=== PATIENT | male | born 1930 | race Caucasian/White ===

== ENCOUNTER → 2016-04-17 | Outpatient (CLI) | payer MEDICARE, OTHER | END | disposition home or self-care (01) | LOC: GMAB 10:32 | PROVIDERS: ATTEND Family Medicine | DX: Z12.5 Encounter for screening for malignant neoplasm of prostate (principal); I10 Essential (primary) hypertension | CPT/HCPCS: 84443; G0103 ==

== ENCOUNTER → 2017-04-21 | Outpatient (CLI) | payer MEDICARE, OTHER | LOC: GMAB 10:29 | PROVIDERS: ATTEND Family Medicine | DX: Z12.5 Encounter for screening for malignant neoplasm of prostate (principal); I10 Essential (primary) hypertension | CPT/HCPCS: 84443; G0103 ==

== ENCOUNTER 2017-06-03 08:25 | Inpatient (IN) | payer MEDICARE, OTHER ==
--- NOTE | 2017-06-03 08:55 | ED.PDOC ---
History of Present Illness - General Chief Complaint: GI Problem Stated Complaint: rectal bleeding Time Seen by Provider: 06/03/17 08:49 Information Source: patient Exam Limitations: no limitations - History of Present Illness Initial Comments: Albino Dominguez 86 y/o male stated that he had bloody stool x 5 this morning with abdominal cramps no diarrhea,no hematemesis ,occasional constipation,had same symptoms 3 years ago colonoscopy done showed polyp w/c was taken out and also bleeding diverticulitis.Not taking blood thinner but presently on baby aspirin.No chronic medical problem. Abdominal Pain Onset Location: suprapubic Pain Radiation: no radiation Quality: cramping Timing/Duration: 1-3 hours Improving Factors: nothing Worsening Factors: nothing Associated Symptoms: denies symptoms Review of Systems - Review of Systems Constitutional: States: no symptoms reported EENTM: States: no symptoms reported Respiratory: States: no symptoms reported Cardiology: States: no symptoms reported Gastrointestinal/Abdominal: States: see HPI Genitourinary: States: frequency Musculoskeletal: States: back pain - chronic Skin: States: no symptoms reported Neurological: States: no symptoms reported All other Systems: Reviewed and Negative, No Change from Baseline Past Medical History (General) - Patient Medical History Hx Hypertension: Yes Hx Gastroesophageal Reflux: Yes - diverticulitis Surgical History: other - lower back - Vaccination History Hx Influenza Vaccination: Yes Hx Pneumococcal Vaccination: Yes - Social History Hx Tobacco Use: No Hx Alcohol Use: No Hx Substance Use: No Hx Substance Use Treatment: No Hx Depression: No Hx Physical Abuse: No Hx Emotional Abuse: No - Activities of Daily Living Grooming Ability: Independent Eating (Feeding) Ability: Independent Toileting Ability: Independent Family Medical History - Family History Father Living Status: Hx Family Cancer: Yes - colon Physical Exam - Physical Exam General Appearance: Alert, Comfortable, No apparent distress Eyes, Ears, Nose, Throat Exam: normal ENT inspection Neck: non-tender, full range of motion, supple Respiratory: chest non-tender, lungs clear, normal breath sounds Cardiovascular/Chest: normal peripheral pulses, regular rate, rhythm, no murmur Peripheral Pulses: No deficit Gastrointestinal/Abdominal: normal bowel sounds, non tender, soft, no organomegaly Rectal Exam: normal rectal tone, heme positive stool Back Exam: no CVA tenderness, no vertebral tenderness Extremity: non-tender, normal inspection, no pedal edema, no calf tenderness Neurologic: alert, oriented x 3 Skin Exam: normal color, warm/dry Progress - Progress Progress: 06/03/17 08:58 Vital Signs - 24 hr 06/03/17 08:35 Temperature 97.3 F L Pulse Rate [ 94 H pulse ox] Respiratory 20 Rate Blood Pressure 121/71 [Right Arm] O2 Sat by Pulse 95 Oximetry 06/03/17 10:20 D/W Dr. Romero-his low pressure boiler tender [phone] recommend hospital obs ,h/h monitoring,antibiotics and he will see patient next week advised to call 06/03/17 10:22 - Results/Orders Results/Orders: 06/03/17 08:58 URINALYSIS Stat Laboratory Results - last 24 hr 06/03/17 06/03/17 06/03/17 08:58 08:58 09:01 WBC 6.2 RBC 4.09 L Hgb 13.2 L Hct 39.0 L MCV 95.4 H MCH 32.2 H MCHC 33.8 RDW 14.2 Plt Count 191 MPV 7.5 Absolute Neuts (auto) 4.00 Absolute Lymphs (auto) 1.50 Absolute Monos (auto) 0.30 Absolute Eos (auto) 0.30 Absolute Basos (auto) 0.00 Neutrophils % 65.2 Lymphocytes % 23.8 Monocytes % 5.6 Eosinophils % 4.9 Basophils % 0.5 Sodium 138 Potassium 3.8 Chloride 105 Carbon Dioxide 23 Anion Gap 13.8 BUN 22 H Creatinine 1.41 H BUN/Creatinine Ratio 15.6 Random Glucose 152 H Serum Osmolality 282.0 Calcium 8.9 Total Bilirubin 0.6 AST 28 ALT 20 Alkaline Phosphatase 93 Serum Total Protein 6.6 Albumin 3.9 Globulin 2.7 Albumin/Globulin Ratio 1.4 Stool Occult Blood Positive - EKG/XRAY/CT XRAY: abdomen - no acute abnormalities ,mod.amt of stool Departure - Departure Clinical Impression: Rectal bleeding, Abdominal cramps Time of Disposition: 10:25 Disposition: Admit Patient Condition: Fair Departure Forms: Patient Portal Self Enrollment Referrals: Galen Burden MD [Primary Care Provider] - 1-2 Weeks Decision To Admit - Decistion To Admit Decision to Admit Reason: Admit from ER - rectal bleeding Decision to Admit Date: 06/03/17 - D/W Chong Ram-ANP/Hospitalist Decision to Admit Time: 10:23
--- NOTE | 2017-06-03 09:40 | RAD ---
EXAM DESCRIPTION: Chest,1 View CLINICAL HISTORY: pain COMPARISON: None available FINDINGS: The cardiomediastinal silhouette is unremarkable. There is no airspace consolidation or pleural effusion. The bronchovascular markings are within normal limits, and the lungs are not hyperinflated. There is no pneumothorax or acute fracture. IMPRESSION: Negative exam. Electronically signed by: Robin Burns MD 06/03/2017 9:39 AM CDT
--- NOTE | 2017-06-03 09:40 | RAD ---
EXAM DESCRIPTION: Abdomen Flat Upright CLINICAL HISTORY: 86 years Male, pain COMPARISON: None. FINDINGS: Is a moderate amount of colonic stool and gas. The bowel gas pattern is nonobstructive. No free subdiaphragmatic gas. Small colonic air-fluid levels are noted. The gallbladder surgically absent. Postoperative changes are noted in the lumbar spine. A small calcification projects over the right renal hilum. There are degenerative changes in lumbar spine multiple levels including mild dextroscoliosis. IMPRESSION: Moderate amount of colonic stool and gas, but no evidence of obstruction or pneumoperitoneum. Possible right-sided nephrolithiasis. If clinically suspicious of a right ureteral calculus, noncontrast CT is suggested. Degenerative and postoperative changes. Electronically signed by: Robin Burns MD 06/03/2017 9:38 AM CDT
--- NOTE | 2017-06-03 11:22 | HP ---
SUPERVISING PHYSICIAN: Jasiel Collins MD CHIEF COMPLAINT: Rectal bleeding. HISTORY OF PRESENT ILLNESS: Mr. Dominguez is an 86-year-old male patient who came to the Emergency Room due to bloody stools times 5 this morning with abdominal cramping. The patient does have a history of diverticulosis in the past. Apparently he had a colonoscopy around 3 years ago. At that time, he had a polypectomy as well as noted bleeding diverticula. The patient had been here at the hospital with his who is in [facility] orthopedic surgery. He was seen in the Emergency Room and noted to have a hemoglobin of 13.2. He had a mild acute kidney injury noted as well. Dr. Santana in the Emergency Room contacted the patient's sheet cutting operator, who is Dr. Romero, in [place]. He recommended the patient be admitted to the hospital under observation with serial H&Hs as well as treatment for diverticulitis with antibiotics. He stated he would see the patient next week unless there were complications prior to that. The patient is admitted under observation. At the time of examination , he is actually in his 's room at this time. He has some lower abdominal cramping and some mild tenderness to palpation. Otherwise, he is in no distress. PAST MEDICAL HISTORY: 1. Diverticulosis. 2. Osteoarthritis. 3. Glaucoma. PAST SURGICAL HISTORY: 1. Back surgery. 2. Colonoscopy. CURRENT MEDICATIONS: 1. Bentyl 10 mg 1 capsule b.i.d. p.r.n. for abdominal pain. 2. Metoprolol 25 mg extended release daily. 3. Allopurinol 300 mg p.o. daily. 4. Clonazepam 0.5 mg half tab at h.s. 5. Gabapentin 300 mg 1 tab twice daily. 6. Aspirin 81 mg p.o. daily. 7. Zantac 120 mg p.o. b.i.d. 8. Cosopt eyedrops 1 drop in the left eye b.i.d. 9. Travatan eyedrops 1 drop to each eye every morning. ALLERGIES: NO KNOWN DRUG ALLERGIES. FAMILY HISTORY: Reviewed and noncontributory. SOCIAL HISTORY: The patient is a nondrinker, nonsmoker, no illicit drugs. REVIEW OF SYSTEMS: CONSTITUTIONAL: No fever or chills. No recent weight loss or weight gain. HEENT: No headaches, vision changes, ear pain, nasal congestion or throat pain. RESPIRATORY: No cough, hemoptysis or pleuritic chest pain. CARDIOVASCULAR: No chest pain, palpitations or peripheral edema. GASTROINTESTINAL: Positive for some rectal bleeding, some lower abdominal pain , some nausea. No vomiting or constipation. GENITOURINARY: No dysuria, frequency or flank pain. HEMATOLOGIC: Positive for easy bruising, but no transfusion reactions. MUSCULOSKELETAL: No muscle cramps, joint pain or joint swelling. ENDOCRINE: No polydipsia, polyuria, polyphagia. No heat or cold intolerance. NEUROLOGIC: No syncope, paresthesias, seizures. PHYSICAL EXAMINATION: VITAL SIGNS: Blood pressure 121/80. Heart rate 88. Respiratory rate 19. Temperature 97.4. Oxygen saturation 97%. GENERAL: Mr. Dominguez is an 86-year-old male patient in no active distress currently. HEENT: Normocephalic, atraumatic. Pupils are equal and reactive. No nasal drainage. Throat with moist mucosa. NECK: Supple. Midline trachea. No jugular venous distention. CHEST: Symmetrical with equal rise and fall of the chest with inspiration and expiration. Lung sounds are clear to auscultation bilaterally. CARDIOVASCULAR: Regular rate and rhythm. Normal S1, S2. ABDOMEN: Soft. Positive bowel sounds. He does have some tenderness to palpation to bilateral lower quadrants. EXTREMITIES: Pulses 2+, cap refill less than 2 seconds. NEUROLOGICAL: Alert and oriented. LABORATORY: White blood cell count 6.2, hemoglobin 13.2, hematocrit 39.0, platelet count 191. Chemistry showed sodium 138, potassium 3.8, chloride 105, CO2 23, BUN 22, creatinine 1.41, glucose 152, calcium 8.9. Normal transaminases. Stool occult was positive. He had abdominal x-ray as well as chest x-ray. The abdominal x-ray showed a moderate amount of colonic stool and gas but no evidence of obstruction or pneumoperitoneum. Chest x-ray was negative. ASSESSMENT: 1. Abdominal pain. 2. Rectal bleeding. 3. Acute kidney injury. 4. History of diverticulitis. PLAN: At this point, with a consultation with Dr. Romero in [place], we are going to treat this like diverticulitis although his white cell count is normal. We will get serial H&Hs to ensure that he remains stable. I am going to give him some IV fluids due to the fact that he does have an acute kidney injury. Hold off on DVT prophylaxis due to acute bleeding. Also, he is ambulatory with his being next door to his room. If he remains stable overnight and his hemoglobin stays stable, we will likely release him tomorrow. He needs to followup with Dr. Romero next week. I am placing him on Flagyl p.o. as well as Cipro p.o. #[id number] #[id number] [facility]
[2017-06-03] MEDS ORDERED: SODIUM CHLORIDE 0.9% (FLUSH) 10 ML SYG IV PRN (12:48)
[2017-06-03] MEDS: metroNIDAZOLE 500 MG TAB PO SCH ×2 (13:06→20:42)
[2017-06-03] MEDS: CIPROFLOXACIN 500 MG TAB PO SCH ×2 (13:06→20:42)
[2017-06-03] MEDS: IV SET AND CAP CHANGE INJ INJ SCH (13:06)
[2017-06-03] MEDS: SODIUM CHLORIDE 0.9% 1000ML 1,000 ML IVS PRN (14:15)
[2017-06-04] MEDS: SODIUM CHLORIDE 0.9% 1000ML 1,000 ML IVS PRN ×2 (00:10→09:20)
[2017-06-04] MEDS: metroNIDAZOLE 500 MG TAB PO SCH ×3 (04:58→20:56)
[2017-06-04] MEDS: CIPROFLOXACIN 500 MG TAB PO SCH ×2 (08:29→20:56)
--- NOTE | 2017-06-04 09:58 | CT ---
EXAM DESCRIPTION: Abdoment/Pelvis w/o Contrast CLINICAL HISTORY: 86 years Male, diverticulitis COMPARISON: 28 March 2008 TECHNIQUE: Transaxial images were obtained without intravenous or oral contrast media. Sagittal and coronal reconstruction was performed.This exam was performed according to our departmental dose-optimization program, which includes automated exposure control, adjustment of the mA and/or kV according to patient size and/or use of iterative reconstruction technique. FINDINGS: The lung bases are clear. The liver and spleen are unremarkable. No biliary ductal dilatation is observed. The gallbladder is been previously removed. Surgical clips are seen in the region of gallbladder fossa. No adrenal masses are detected. The pancreas is normal in appearance. Imaging of the kidneys reveals no evidence of hydronephrosis mass or urinary tract calcification. A large peripelvic cyst is again observed on the left essentially unchanged from the prior exam. Calcific atherosclerotic changes observed in the abdominal aorta without evidence of aneurysmal dilatation. Diverticulosis of the colon is observed without evidence of diverticulitis or abscess. The appendix is identified and is normal in appearance. Pedicle screw and interbody fusion of the L3-4 level of the lumbar spine is observed. Degenerative changes are observed in the lumbar spine. IMPRESSION: 1. Cholecystectomy. 2. Uncomplicated diverticulosis of the colon. No CT evidence of diverticulitis is seen. 3. L3-4 level lumbar fusion. Electronically signed by: Yobani Wheat MD 06/04/2017 9:56 AM CDT
[2017-06-04] MEDS ORDERED: CYANOCOBALAMIN INJ 1,000 MCG/ML INJ IM ONE (18:29)
[2017-06-04] MEDS: SODIUM CHLORIDE 0.9% (FLUSH) 10 ML SYG IV SCH (20:56)
--- NOTE | 2017-06-04 23:29 | PN ---
DATE: 05/2517 SUPERVISING PHYSICIAN: Jasiel Collins M.D. SUBJECTIVE: The patient is sitting up in his 's hospital room. When he walked in the hallway today he said he was pretty weak, but he had had no bloody stools today. No complaints of chest pain or shortness of breath. OBJECTIVE: VITAL SIGNS: Temperature 98.4, pulse rate 74, blood pressure 93/58, respiratory rate 18, O2 sat 96% on room air. RESPIRATORY: Essentially clear to auscultation bilaterally. CARDIAC: Regular rate and rhythm. GASTROINTESTINAL: Abdomen is soft, nondistended, non-tender. Bowel sounds are positive. NEUROLOGIC: He is awake, alert and oriented times three. LABORATORY: WBCs are 7.2. Hemoglobin and hematocrit yesterday afternoon were 11.8 and 34.8. He has had serial H&H's done since then and his most recent hemoglobin is 9.8 and hematocrit 29.1. Sodium 138, potassium 3.7, chloride 111 , carbon dioxide 20, BUN 21, creatinine 1.21, calcium 7.9. CT of the abdomen and pelvis was done today and per radiology interpretation shows cholecystectomy , uncomplicated diverticulosis of the colon. No CT evidence of diverticulitis. L3 to L4 level lumbar fusion. All other labs and films have been reviewed via the EMR. ASSESSMENT: 1. Abdominal pain. 2. Rectal bleeding. 3. Acute kidney injury. 4. History of diverticulitis. 5. Normochromic/macrocytic anemia. PLAN: We will continue present supportive care. I have discontinued his IV fluids as his drop in H&H may be somewhat dilutional. I have also ordered cyanocobalamin injection. I have ordered some Vitamin B12 level. I have ordered an H&H for in the morning. He sees Dr. Romero in [place] and I will call and get him in for a close followup appointment next week. We will continue to monitor him closely and follow as needed. #[id number] [facility]
[2017-06-05] MEDS: metroNIDAZOLE 500 MG TAB PO SCH ×4 (05:32→21:15)
[2017-06-05] MEDS: CIPROFLOXACIN 500 MG TAB PO SCH ×2 (08:48→21:15)
[2017-06-05] MEDS: SODIUM CHLORIDE 0.9% (FLUSH) 10 ML SYG IV SCH ×2 (08:48→21:15)
[2017-06-05] MEDS ORDERED: ACETAMINOPHEN 325 MG TAB PO ONE (09:11)
[2017-06-05] MEDS ORDERED: FUROSEMIDE INJ 40 MG/4 ML VIAL IV ONE (09:11)
[2017-06-05] MEDS ORDERED: diphenhydrAMINE HCL 50 MG/ML VIAL IV ONE (09:11)
[2017-06-05] MEDS ORDERED: SODIUM CHLORIDE 0.9% 500ML 500 ML IVS SCH (09:30)
--- NOTE | 2017-06-05 20:17 | PN ---
DATE: 06/05/17 SUPERVISING PHYSICIAN: Jasiel Collins M.D. SUBJECTIVE: The patient is lying in bed. He is receiving his blood transfusion. He still continues to feel quite weak, but he does feel better since he has gotten at least 1 unit of blood. He has had no further complaints of bloody stools. We discussed his appointment with Dr. Romero on Friday. He denies any shortness of breath, nausea, vomiting, diarrhea or constipation. OBJECTIVE: VITAL SIGNS: He is afebrile, heart rate 80, blood pressure 125/74, respiratory rate 15, O2 sat 99% on room air. RESPIRATORY: Essentially clear to auscultation bilaterally. CARDIAC:Regular rate and rhythm. ABDOMEN: Soft, slightly tender diffusely, more so on the left side than the right. Bowel sounds are positive. EXTREMITIES: No cyanosis, clubbing or edema. NEUROLOGIC: He is awake, alert and oriented times three. LABORATORY: Hemoglobin this morning was 8.6 and 25, on admission his hemoglobin was 13.2 and it has dropped to 8.6. Vitamin B12 is greater than 1500 , serum folate is greater than 24. All other labs and films have been reviewed via the EMR. ASSESSMENT: 1. Abdominal pain. 2. Anemia most likely from bleeding diverticula with bloody stools. 3. Weakness most likely due to rectal bleeding. 4. Acute kidney injury. 5. History of diverticulitis with a significant history of bleeding diverticulum. 6. Rectal bleeding. PLAN: We will continue present supportive care. Due to the patient's extreme weakness and at the recommendation of close monitoring from his GI doctor, Dr. Romero in [place], I have changed him to an inpatient status. I will check his H&H in the morning. I called Dr. Romero, the patient's GI doctor in [place] today and he said the patient has a significant history of bleeding, especially of the diverticulum. He recommended that we monitor him closely and he will see him in clinic on Friday. At this point, we will continue to watch him closely. Plan for discharge in the next day or two. Dr. Collins is the collaborating physician available for consultation. #[id number] [facility]
[2017-06-06] MEDS: metroNIDAZOLE 500 MG TAB PO SCH ×2 (05:30→12:46)
[2017-06-06] MEDS: SODIUM CHLORIDE 0.9% (FLUSH) 10 ML SYG IV SCH (09:11)
[2017-06-06] MEDS: CIPROFLOXACIN 500 MG TAB PO SCH (09:11)
[2017-06-06 11:05] VITALS: BP 105/65; TEMP 98.3; O2SAT 96
[2017-06-06] MEDS: IV SET AND CAP CHANGE INJ INJ SCH (12:48)
--- NOTE | 2017-06-07 14:31 | DS ---
SUPERVISING PHYSICIAN: Jasiel Collins M.D. DISCHARGE DIAGNOSIS: 1. Acute abdominal pain. 2. Anemia most likely from bleeding diverticula with bloody stools. 3. Weakness most likely due to rectal bleeding. 4. Acute kidney injury. 5. History of diverticulitis with a significant history of bleeding diverticulum. 6. Rectal bleeding. HISTORY OF PRESENT ILLNESS: This is an 86-year-old male patient who had been staying with his in the hospital after she had knee surgery earlier in the week. He had had several bloody stools and had abdominal cramping. He has a significant history of diverticulosis in the past as well as diverticulitis and bleeding diverticulum. Apparently his last colonoscopy was about [address] Romero, drug enforcement agent in [place]. At that time, he had been noted to have bleeding diverticula. Initially his hemoglobin was 13.2. HOSPITAL COURSE: He was placed in observation for his hemoglobin as well as for pain control for his abdomen. He was also placed on Flagyl and oral Ciprofloxacin. His hemoglobin dropped to 8.6 and the patient was significantly in a weakened state. A CT of his abdomen was done and it showed cholecystectomy and uncomplicated diverticulosis of the colon with no CT evidence of diverticulitis. I called Dr. Romero's office in [place]. Dr. Romero recommended that the patient be placed on bowel rest and monitored. He agreed that the patient should receive a blood transfusion and would need to followup very closely in his office. He has a followup appointment on June 10 at 2:[address] Romero in [place]. His admission status was changed to a full admission. He was monitored very closely. Hemoglobin is 11.5 and 33.3 today. Potassium was slightly low at 3.3. Creatinine is still slightly elevated at 1.35. He will be discharged home today with close followup with his GI doctor as well as his primary care physician, Dr. Burden. DISCHARGE PLAN: The patient will be discharged home in stable condition. He is to continue a bland diet and increase activity as tolerated. He is to watch closely for blood in his stools. He is to see Dr. Romero on June [address] Romero's office was faxed lab results as well as the CT results. He also has an appointment with Dr. Burden on 06/16/17 with a CBC on arrival. He had no evidence of diverticulitis so his Flagyl and his Ciprofloxacin was discontinued. He will now be sent home on antibiotics. He is to return to the hospital or call Dr. Burden's or Dr. Romero's office for any further problems or complications. DISCHARGE MEDICATIONS: 1. Travatan. 2. Vitamins. 3. Zantac. 4. Cosopt ophthalmic drops. 5. Baby aspirin. 6. Atenolol. 7. Clonazepam. 8. Gabapentin. 9. Metoprolol. 10. Allopurinol. 11. Dicyclomine. Dr. Collins is the collaborating physician available for consultation. #[id number] [facility]
== END 2017-06-06 13:21 | disposition home or self-care (01) | DRG 378 ==
LOC: ER 08:25 → MS 11:21 → UNDOADMOB 11:21 → OBSVTOIN 06-05 09:00
PROVIDERS: ADMIT Nurse Practitioner; ATTEND Nurse Practitioner Acute Care
PROC: 30233N1 Transfusion of Nonautologous Red Blood Cells into Peripheral Vein, Percutaneous Approach (ICD-10-PCS; principal; 2017-06-05)
DX: K57.31 Diverticulosis of large intestine without perforation or abscess with bleeding (principal); N17.9 Acute kidney failure, unspecified; H40.9 Unspecified glaucoma; M19.90 Unspecified osteoarthritis, unspecified site; D50.0 Iron deficiency anemia secondary to blood loss (chronic); G89.29 Other chronic pain; M54.9 Dorsalgia, unspecified; I10 Essential (primary) hypertension; E87.6 Hypokalemia; Z90.49 Acquired absence of other specified parts of digestive tract; Z79.82 Long term (current) use of aspirin; Z79.899 Other long term (current) drug therapy

== ENCOUNTER → 2017-11-06 | Outpatient (CLI) | payer MEDICARE, OTHER ==
--- NOTE | 2017-11-06 17:41 | CT ---
EXAM DESCRIPTION: Abdomen/Pelvis w/Contrast CLINICAL HISTORY: 87 years Male, GENERALIZED ABDOMINAL PAIN COMPARISON: 04 June 2017 TECHNIQUE: Transaxial images were obtained with intravenous contrast medium without oral contrast media. Sagittal and coronal reconstruction was performed.This exam was performed according to our departmental dose-optimization program, which includes automated exposure control, adjustment of the mA and/or kV according to patient size and/or use of iterative reconstruction technique. FINDINGS: The lung bases are clear. A small hiatus hernia is observed. The liver and spleen are unremarkable. A tiny cyst is observed in the lateral segment of the left lobe of the liver. The patient is postcholecystectomy. Surgical clips are seen in the region of the gallbladder fossa. No adrenal masses are detected. No biliary ductal dilatation is observed. The pancreas is normal in appearance. Imaging of the kidneys reveals no evidence of hydronephrosis mass or calcification. Simple cysts are detected in both kidneys. The largest is seen on the left measuring 6.2 cm in greatest diameter. Calcific atherosclerotic changes observed in the abdominal aorta without evidence of aneurysmal dilatation. Diverticulosis of the colon is observed. The exam does reveal a small focus of probable diverticulitis in the left lower quadrant in the sigmoid colon. No drainable abscess is seen. No free fluid is observed in the pelvis. No inguinal region abnormality is seen. Degenerative changes are observed in the lumbar spine. There is evidence for prior L3-4 level fusion. IMPRESSION: 1. Hiatus hernia. 2. Cysts are observed in the liver and kidneys. 3. Diverticulosis of the colon is observed with a focus of diverticulitis in the left lower quadrant. No drainable abscess is seen. 4. Cholecystectomy. Electronically signed by: Yobani Wheat MD 11/06/2017 5:39 PM CDT
== END ==
LOC: LAB.O 15:50
PROVIDERS: ATTEND Family Medicine
DX: R10.84 Generalized abdominal pain (principal); K44.9 Diaphragmatic hernia without obstruction or gangrene; K76.89 Other specified diseases of liver; N28.1 Cyst of kidney, acquired; K57.30 Diverticulosis of large intestine without perforation or abscess without bleeding

== ENCOUNTER → 2018-04-21 | Outpatient (CLI) | payer MEDICARE, OTHER | LOC: GMAE 12:29 | PROVIDERS: ATTEND Family Medicine | DX: I10 Essential (primary) hypertension (principal); M10.9 Gout, unspecified ==

== ENCOUNTER 2018-06-20 10:44 | Emergency (ER) | payer MEDICARE, OTHER ==
[2018-06-20 10:57] VITALS: O2SAT 96
[2018-06-20] MEDS ORDERED: LIDOCAINE 1% 10 ML VIAL INJ ONE (11:04)
--- NOTE | 2018-06-20 12:00 | ED.PDOC ---
History of Present Illness - General Chief Complaint: Laceration Stated Complaint: laceration to face Time Seen by Provider: 06/20/18 10:58 Source: patient Exam Limitations: no limitations - History of Present Illness Initial Comments: Patient presents with a laceration to the right forehead. He says he was struck by a small piece of metal that was swinging on a rope. He did not get knocked down and has no pain complaints. No other injuries nor complaints. Timing/Duration: 1-3 hours Severity: mild Improving Factors: nothing Worsening Factors: nothing Associated Symptoms: denies symptoms Allergies/Adverse Reactions: Allergies NO KNOWN ALLERGY Allergy (Verified 06/03/17 13:00) Home Medications: Ambulatory Orders Allopurinol 300 mg PO DAILY 06/03/17 Aspirin [Baby Aspirin] 81 mg PO QD 06/03/17 Atenolol [Tenormin] 25 mg PO DAILY 06/03/17 Clonazepam 0.25 mg PO BEDTIME 06/03/17 Dicyclomine HCl [Bentyl] 10 mg PO BID PRN 06/03/17 Dorzolamide-Timolol Ophth [Cosopt Opthalmic Drops] 1 heriberto OP BID 06/03/17 Gabapentin 300 mg PO BID 06/03/17 Multiple Minerals W/ Vitamins [Citracal Plus] 1 tab PO DAILY 06/03/17 Travoprost [Travatan Z] 1 drop OP DAILY 06/03/17 raNITIdine HCL [Zantac] 150 mg PO AC 06/03/17 Review of Systems - Review of Systems Constitutional: States: no symptoms reported EENTM: States: no symptoms reported Respiratory: States: no symptoms reported Cardiology: States: no symptoms reported Gastrointestinal/Abdominal: States: no symptoms reported Genitourinary: States: no symptoms reported Musculoskeletal: States: no symptoms reported Skin: States: see HPI Neurological: States: no symptoms reported Endocrine: States: no symptoms reported Hematologic/Lymphatic: States: no symptoms reported Past Medical History (General) - Patient Medical History Hx Seizures: No Hx Stroke: No Hx Asthma: No Hx of COPD: No Hx Congestive Heart Failure: No Hx Pacemaker: No Hx Hypertension: Yes Hx Diabetes: No Hx Gastroesophageal Reflux: Yes - diverticulitis Hx MRSA: No - Vaccination History Hx Tetanus, Diphtheria Vaccination: No Hx Influenza Vaccination: Yes Hx Pneumococcal Vaccination: Yes - Social History Hx Tobacco Use: No Hx Alcohol Use: No Hx Substance Use: No Hx Substance Use Treatment: No Hx Depression: No Hx Physical Abuse: No Hx Emotional Abuse: No Family Medical History - Family History Father Living Status: Hx Family Cancer: Yes - colon Physical Exam - Physical Exam General Appearance: Alert Eye Exam: bilateral normal Ears, Nose, Throat: normal ENT inspection Neck: non-tender, full range of motion, supple Respiratory: lungs clear, normal breath sounds Cardiovascular/Chest: normal peripheral pulses, regular rate, rhythm Gastrointestinal/Abdominal: normal bowel sounds, non tender, soft Neurologic: rn otolaryngology II-XII nml as tested, no motor/sensory deficits, alert, normal mood/affect, oriented x 3 Skin Exam: other - 3 cm transverse laceration on the mid-right forehead. Hemostatic Progress - Progress Progress: 06/20/18 12:02 Area was cleaned and draped in a sterile fashion. 3 cc of lidocaine without epinephrine was used to gain excellent local anesthesia. Irrigated with 30 cc sterile NS. 6 interrupted sutures using 5-0 Proline were used to gain excellent wound edge opposition. Area was clean, dry, and hemostatic upon completion. Patient tolerated procedure well. Care instructions given. E.R. warnings given. Questions were elicited and answered. Patient voiced understanding and agreement with the plan. Departure - Departure Clinical Impression: Laceration Disposition: Discharge to Home or Self Care Condition: Good Departure Forms: ED Discharge - Pt. Copy, Patient Portal Self Enrollment Diet: resume usual diet Activity: increase activity as tolerated Referrals: ADAM MOLINA MD [Primary Care Provider] - 1-2 Weeks Home Medications: Ambulatory Orders Allopurinol 300 mg PO DAILY 06/03/17 Aspirin [Baby Aspirin] 81 mg PO QD 06/03/17 Atenolol [Tenormin] 25 mg PO DAILY 06/03/17 Clonazepam 0.25 mg PO BEDTIME 06/03/17 Dicyclomine HCl [Bentyl] 10 mg PO BID PRN 06/03/17 Dorzolamide-Timolol Ophth [Cosopt Opthalmic Drops] 1 heriberto OP BID 06/03/17 Gabapentin 300 mg PO BID 06/03/17 Multiple Minerals W/ Vitamins [Citracal Plus] 1 tab PO DAILY 06/03/17 Travoprost [Travatan Z] 1 drop OP DAILY 06/03/17 raNITIdine HCL [Zantac] 150 mg PO AC 06/03/17 Additional Instructions: Return to the E.R. or your regular doctor in 5-7 days for suture removal.
[2018-06-20] MEDS ORDERED: TETANUS,DIPHTHERIA,PERTUSSIS 1 EA SYG IM ONE (12:07)
[2018-06-20 12:22] VITALS: BP 152/83; TEMP 98.6
== END 2018-06-20 12:25 | disposition home or self-care (01) ==
LOC: ER 10:44
DX: S01.81XA Laceration without foreign body of other part of head, initial encounter (principal); I10 Essential (primary) hypertension; W20.8XXA Other cause of strike by thrown, projected or falling object, initial encounter; Z79.899 Other long term (current) drug therapy; Z79.82 Long term (current) use of aspirin; Y92.9 Unspecified place or not applicable

== ENCOUNTER → 2018-12-29 | Outpatient (CLI) | payer MEDICARE, OTHER ==
--- NOTE | 2018-12-29 14:21 | RAD ---
2 radiographs right hip. One radiograph pelvis. Indication: PAIN IN RIGHT HIP Comparison: None. Impression: No acute fracture. Evaluation for fracture is limited given the degree of osteopenia. If high clinical concern for acute fracture, correlation with MRI recommended given its greater sensitivity in the osteopenic patient. If the patient cannot tolerate MRI imaging or more urgent imaging is required, CT could be performed, however it is less sensitive in the osteopenic patient when compared to MRI. Moderate bilateral hip osteoarthritis with joint space narrowing, joint line osteophyte formation. 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 Electronically signed by: Siddharth Goldstein MD 12/29/2018 2:20 PM [facility]
--- NOTE | 2018-12-29 14:22 | RAD ---
2 radiographs right hip. One radiograph pelvis. Indication: PAIN IN RIGHT HIP Comparison: None. Impression: No acute fracture. Evaluation for fracture is limited given the degree of osteopenia. If high clinical concern for acute fracture, correlation with MRI recommended given its greater sensitivity in the osteopenic patient. If the patient cannot tolerate MRI imaging or more urgent imaging is required, CT could be performed, however it is less sensitive in the osteopenic patient when compared to MRI. Moderate bilateral hip osteoarthritis with joint space narrowing, joint line osteophyte formation. 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 Electronically signed by: Siddharth Goldstein MD 12/29/2018 2:20 PM [facility]
== END | disposition home or self-care (01) ==
LOC: RAD 09:25
PROVIDERS: ATTEND Orthopaedic Surgery
DX: M25.551 Pain in right hip (principal)

== ENCOUNTER → 2019-04-26 | Outpatient (CLI) | payer MEDICARE, OTHER | LOC: GMAE 10:56 | PROVIDERS: ATTEND Family Medicine | DX: N40.0 Benign prostatic hyperplasia without lower urinary tract symptoms (principal); I10 Essential (primary) hypertension; E29.9 Testicular dysfunction, unspecified ==

== ENCOUNTER → 2019-07-15 | Outpatient (CLI) | payer MEDICARE, OTHER ==
--- NOTE | 2019-07-15 10:39 | RAD ---
EXAM DESCRIPTION: Wrist,Right 3 Views CLINICAL HISTORY: PAIN IN RIGHT WRIST COMPARISON: None. IMPRESSION: 3 views of the right wrist show no acute fracture, focal bone destruction, or joint dislocation. 2 mm of ulnar positive variance is seen. Soft tissues are unremarkable. Electronically signed by: Hieu Eng MD 07/15/2019 10:37 AM CDT
== END ==
LOC: RAD 09:33
PROVIDERS: ATTEND Orthopaedic Surgery
DX: Z01.818 Encounter for other preprocedural examination (principal); M24.831 Other specific joint derangements of right wrist, not elsewhere classified

== ENCOUNTER 2019-08-10 05:27 | Day surgery (SDC) | payer MEDICARE, OTHER ==
[2019-08-10] MEDS ORDERED: LACTATED RINGERS 1,000 ML ONE (05:51)
[2019-08-10] MEDS ORDERED: ceFAZolin SODIUM 1 GM VIAL ONE (05:51)
[2019-08-10] MEDS ORDERED: SODIUM CHL 0.9% 100ML MINI-BAG 100 ML IVPB ONE (05:52)
[2019-08-10] MEDS ORDERED: MIDAZOLAM INJ 2 MG/2 ML VIAL ONE (06:31)
[2019-08-10] MEDS ORDERED: KETAMINE HCL 100 MG/ML VIAL ONE (06:32)
[2019-08-10] MEDS: BUPIVACAINE 0.5% 30 ML VIAL INJ ONE ×2 (07:31→08:34)
[2019-08-10] MEDS: BUPIVACAINE LIPOSOME 13.3 MG/ML VIAL INJ ONE ×2 (07:31→08:34)
[2019-08-10] MEDS: ceFAZolin SODIUM 1 GM VIAL ONE ×2 (07:31→08:31)
[2019-08-10] MEDS: VANCOMYCIN HCL INJ 1,000 MG VIAL IVPB ONE ×2 (07:32→08:31)
[2019-08-10 09:43] VITALS: TEMP 97.2
[2019-08-10] MEDS ORDERED: diphenhydrAMINE HCL 50 MG/ML VIAL IV ONE (10:00)
[2019-08-10] MEDS ORDERED: LIDOCAINE 1% 10 ML VIAL INJ ONE (10:00)
[2019-08-10] MEDS ORDERED: PHENYLEPHRINE INJ 1ML 10 MG/ML VIAL IV ONE (10:00)
[2019-08-10] MEDS ORDERED: PROPOFOL 200 MG/20 ML VIAL IV ONE (10:00)
[2019-08-10] MEDS ORDERED: SODIUM CHLORIDE 0.9% 50 ML VIAL INJ ONE (10:00)
[2019-08-10] MEDS ORDERED: DEXAMETHASONE INJ 10 MG/ML VIAL IV ONE (10:00)
[2019-08-10] MEDS ORDERED: HYDROcodone 5MG/APAP 325MG 1 EA TAB ONE (10:26)
[2019-08-10 11:16] VITALS: BP 141/58; O2SAT 95
--- NOTE | 2019-08-13 12:57 | OP ---
DATE OF PROCEDURE: 08/10/19 PREOPERATIVE DIAGNOSIS: 1. Ulnar nerve compression. POSTOPERATIVE DIAGNOSIS: 1. Ulnar nerve compression. PROCEDURE: 1. Ulnar nerve transposition. SURGEON: Kee Ramon MD. STARTING SHEET TANK OPERATOR: Valdemar Mcfarland CST, SA-C. ANESTHESIA: General anesthesia. COMPLICATIONS: None. FINDINGS: Compression of the ulnar nerve across the cubital tunnel. INDICATION: Mr. Dominguez has a history of symptoms consistent with ulnar nerve compression. He has had pain in addition to numbness and weakness. It has been progressive and he has failed conservative measures. After discussing the risks, benefits and alternatives to operative intervention, the patient gave informed consent for ulnar nerve transposition. PROCEDURE: The patient was brought to the Operating Room and placed in the supine position. General anesthesia was induced and the patient's arm was sterilely prepped and draped. An incision was made directly between the medial epicondyle and the olecranon. Blunt dissection used to identify the nerve proximally. A vessel loop was passed around the nerve and it was used to mobilize the nerve atraumatically. The nerve was freed along its course and it was transposed medial to the medial epicondyle. The wound was irrigated and the fascia was closed to the periosteum. Care was taken to ensure that the nerve was completely free of the area where the fascia and the periosteum were reapproximated. Following that, the wound was again irrigated. It was closed with a combination of running and interrupted subcuticular stitches. Sterile dressings were placed. The patient was awoken from anesthesia and taken to Recovery. POSTOPERATIVE PLAN: The patient has been encouraged to do range of motion of the digits. He will followup in two days and we will begin range of motion of the elbow. #[id number] [facility]
== END 2019-08-10 11:05 | disposition home or self-care (01) ==
LOC: AMB 05:27
PROVIDERS: ATTEND Orthopaedic Surgery
DX: G56.21 Lesion of ulnar nerve, right upper limb (principal); I10 Essential (primary) hypertension; K21.9 Gastro-esophageal reflux disease without esophagitis; F03.90 Unspecified dementia, unspecified severity, without behavioral disturbance, psychotic disturbance, mood disturbance, and anxiety; J44.9 Chronic obstructive pulmonary disease, unspecified; E11.9 Type 2 diabetes mellitus without complications; M10.9 Gout, unspecified; Z79.899 Other long term (current) drug therapy; Z90.49 Acquired absence of other specified parts of digestive tract
CPT/HCPCS: 01710; 64718; 80307; A4216; J0690; J1100; J1200; J2250; J3370; J3490; J7050; J7120

== ENCOUNTER → 2019-09-27 | Outpatient (CLI) | payer MEDICARE, OTHER | LOC: LAB.O 10:28 | PROVIDERS: ATTEND Orthopaedic Surgery | DX: Z01.818 Encounter for other preprocedural examination (principal) ==

== ENCOUNTER 2019-10-13 05:38 | Day surgery (SDC) | payer MEDICARE, OTHER ==
[2019-10-13] MEDS ORDERED: ceFAZolin SODIUM 1 GM VIAL ONE ×2 (05:54→06:33)
[2019-10-13] MEDS ORDERED: LACTATED RINGERS 1,000 ML ONE (05:54)
[2019-10-13] MEDS ORDERED: SODIUM CHL 0.9% 100ML MINI-BAG 100 ML IVPB ONE (05:54)
[2019-10-13] MEDS ORDERED: MIDAZOLAM INJ 2 MG/2 ML VIAL ONE (06:30)
[2019-10-13] MEDS ORDERED: FAMOTIDINE 10 MG/ML ML IV ONE (06:31)
[2019-10-13] MEDS ORDERED: BUPIVACAINE 0.5% 30 ML VIAL INJ ONE ×2 (06:31→06:59)
[2019-10-13] MEDS ORDERED: BUPIVACAINE LIPOSOME 13.3 MG/ML VIAL INJ ONE ×2 (06:31→06:59)
[2019-10-13] MEDS ORDERED: VANCOMYCIN HCL INJ 1,000 MG VIAL IVPB ONE ×2 (06:33→06:59)
[2019-10-13] MEDS ORDERED: LACTATED RINGERS 1,000 ML IVS ONE (06:35)
[2019-10-13] MEDS ORDERED: ceFAZolin SODIUM 1 GM VIAL IRRIG ONE (06:59)
[2019-10-13] MEDS ORDERED: DEXAMETHASONE INJ 10 MG/ML VIAL ONE (07:00)
[2019-10-13] MEDS ORDERED: ePHEDrine SULF 50 MG/ML ONE (07:00)
[2019-10-13] MEDS ORDERED: PROPOFOL 200 MG/20 ML VIAL IV ONE (07:00)
[2019-10-13] MEDS ORDERED: LIDOCAINE 1% 10 ML VIAL INJ ONE (07:00)
[2019-10-13] MEDS ORDERED: MAGNESIUM SULFATE INJ 1 GM/2 ML VIAL ONE (07:00)
[2019-10-13] MEDS ORDERED: LACTATED RINGERS 200 ML IVS ONE (08:53)
[2019-10-13 09:51] VITALS: O2SAT 95
[2019-10-13 10:35] VITALS: BP 147/55; TEMP 97.1
--- NOTE | 2019-10-13 13:56 | OP ---
DATE OF PROCEDURE: 10/13/19 PREOPERATIVE DIAGNOSIS: 1. Ulnar nerve entrapment, left. POSTOPERATIVE DIAGNOSIS: 1. Ulnar nerve entrapment, left. PROCEDURE: 1. Ulnar nerve transposition. SURGEON: Kee Ramon MD. SALMON GILLNET VESSEL OPERATOR: Valdemar Mcfarland CST, SA-C. ANESTHESIA: General anesthesia. COMPLICATIONS: None. FINDINGS: Compression of the ulnar nerve across the cubital tunnel. INDICATION: Mr. Dominguez has a history of symptoms on both sides consistent with ulnar nerve compression. He has had contralateral ulnar nerve transposition and is requesting the left ulnar nerve be transposed. After discussing the risks, benefits and alternatives to operative intervention, the patient gave informed consent. PROCEDURE: The patient was brought to the Operating Room and placed in the supine position. General anesthesia was induced and the patient's arm was sterilely prepped and draped. An incision was made midway between the olecranon and the medial epicondyle. Dissection was carried down to the fascia which was split bluntly and the nerve was identified proximally. Vessel loop was used to manipulate the nerve atraumatically. The nerve was freed from proximal to distal. The tissues medial to the epicondyle were elevated and the nerve was transposed. The tissues were sewn to the periosteum of the medial epicondyle. The nerve was identified and it was confirmed to be free of any adhesions. The wound was closed with combination of running and interrupted subcuticular stitches. Sterile dressings were placed. A splint was placed. The patient was awoken from anesthesia and taken to Recovery. POSTOPERATIVE PLAN: The patient will be doing range of motion with the digits and will followup with us in two days. #[id number] [facility]
== END 2019-10-13 10:25 | disposition home or self-care (01) ==
LOC: AMB 05:38
PROVIDERS: ATTEND Orthopaedic Surgery
DX: G56.22 Lesion of ulnar nerve, left upper limb (principal); I10 Essential (primary) hypertension; G47.30 Sleep apnea, unspecified; K21.9 Gastro-esophageal reflux disease without esophagitis; M10.9 Gout, unspecified; Z79.899 Other long term (current) drug therapy; Z99.89 Dependence on other enabling machines and devices
CPT/HCPCS: 01710; 64718; 80307; J0690; J1100; J2250; J3370; J3475; J3490; J7050; J7120